=== PATIENT | female | born 1985 ===

== ENCOUNTER 2016-11-11 17:11 | Emergency (ER) | END 2016-11-11 19:05 | disposition left against medical advice (07) | LOC: CED 17:11 | DX: Z53.21 Procedure and treatment not carried out due to patient leaving prior to being seen by health care provider (principal) ==

== ENCOUNTER 2016-11-17 18:24 | Emergency (ER) | END 2016-11-17 20:15 | disposition left against medical advice (07) | LOC: CED 18:24 | DX: Z53.21 Procedure and treatment not carried out due to patient leaving prior to being seen by health care provider (principal) ==